=== PATIENT | male | born 1955 | race Caucasian/White ===

== ENCOUNTER 2019-11-01 15:24 | Emergency (ER) | payer OTHER ==
[~2019-11-01] VITALS: Ht 182.9 cm; Wt 61.2 kg
[2019-11-01 15:36] VITALS: Ht 182.9 cm; Wt 61.2 kg
[2019-11-01 16:30] VITALS: BP 158/91
== END 2019-11-01 16:30 | disposition home or self-care (01) ==
LOC: ED 15:24
DX: I10 Essential (primary) hypertension (principal)
CPT/HCPCS: 36415

== ENCOUNTER 2020-03-18 10:34 | Emergency (ER) | payer OTHER ==
[~2020-03-18] VITALS: Ht 182.9 cm; Wt 65.3 kg
[2020-03-18 10:54] VITALS: Ht 182.9 cm; Wt 65.3 kg
[2020-03-18 12:21] VITALS: BP 165/90
== END 2020-03-18 12:21 | disposition home or self-care (01) ==
LOC: ED 10:34
DX: F20.0 Paranoid schizophrenia (principal); Z76.0 Encounter for issue of repeat prescription; I10 Essential (primary) hypertension; F17.210 Nicotine dependence, cigarettes, uncomplicated; Z20.828 Contact with and (suspected) exposure to other viral communicable diseases; Z71.6 Tobacco abuse counseling
CPT/HCPCS: 99406; U0003-CS